=== PATIENT | female | born 1935 | race African-American/Black ===

== ENCOUNTER 2023-01-16 06:13 | Day surgery (SDC) | payer OTHER, BC ==
[2023-01-09 12:15] VITALS: BMI 29.8
[2023-01-16 06:49] VITALS: BP 132/65; PULSE 52; RESP 18; TEMP 97.7
[2023-01-16] MEDS ORDERED: ERYTHROMYCIN 0.5% OPHTHALMIC OINTMENT 3.5 GM TUBE ONE (07:10)
[2023-01-16] MEDS ORDERED: ceFAZolin SODIUM 1 GM VIAL ONE ×2 (07:10→07:22)
[2023-01-16] MEDS ORDERED: POVIDONE-IODINE 5% OPHTHALMIC PREP 30 ML SOLUTION ONE (07:11)
[2023-01-16] MEDS ORDERED: LIDOCAINE 1%-EPI 1:100,000 30 ML MDV IJ ONE (07:11)
[2023-01-16] MEDS ORDERED: BUPIVACAINE HCL/PF 0.5% (5MG/ML) 10 ML VIAL ONE (07:11)
[2023-01-16] MEDS ORDERED: TETRACAINE 0.5% OPHTH SOLN 2 ML BOTTLE ONE (07:11)
[2023-01-16] MEDS ORDERED: DEXAMETHASONE SOD PHOSPHATE 4 MG/1 ML VIAL ONE (07:22)
[2023-01-16] MEDS ORDERED: MIDAZOLAM HCL 2 MG/2 ML SINGLE DOSE VIAL ONE (07:22)
[2023-01-16] MEDS ORDERED: PROPOFOL 20 ML ONE (07:22)
[2023-01-16] MEDS ORDERED: ONDANSETRON 4 MG/2 ML VIAL ONE (07:22)
== END 2023-01-16 08:30 | disposition home or self-care (01) ==
LOC: FASU 06:13
PROVIDERS: ATTEND Ophthalmology
PROC: 08SR0ZZ Reposition Left Lower Eyelid, Open Approach (ICD-10-PCS; principal; 2023-01-16)
DX: Z53.8 Procedure and treatment not carried out for other reasons (principal); H02.105 Unspecified ectropion of left lower eyelid

== ENCOUNTER 2023-01-19 05:59 | Day surgery (SDC) | payer OTHER, BC ==
[2023-01-16 10:39] VITALS: BMI 29.8
[2023-01-19] MEDS ORDERED: ERYTHROMYCIN 0.5% OPHTHALMIC OINTMENT 3.5 GM TUBE ONE (06:40)
[2023-01-19] MEDS ORDERED: ceFAZolin SODIUM 1 GM VIAL ONE ×2 (06:40→07:18)
[2023-01-19] MEDS ORDERED: TETRACAINE 0.5% OPHTH SOLN 2 ML BOTTLE ONE (06:40)
[2023-01-19] MEDS ORDERED: POVIDONE-IODINE 5% OPHTHALMIC PREP 30 ML SOLUTION ONE (06:40)
[2023-01-19] MEDS ORDERED: BUPIVACAINE HCL/PF 0.5% (5MG/ML) 10 ML VIAL ONE (06:41)
[2023-01-19] MEDS ORDERED: LIDOCAINE 1%-EPI 1:100,000 30 ML MDV IJ ONE (06:41)
[2023-01-19] MEDS ORDERED: PROPOFOL 20 ML ONE ×2 (07:05→07:34)
[2023-01-19] MEDS ORDERED: MIDAZOLAM HCL 2 MG/2 ML SINGLE DOSE VIAL ONE ×2 (07:05→07:35)
[2023-01-19] MEDS ORDERED: GLYCOPYRROLATE 0.2 MG/1 ML VIAL ONE (07:50)
[2023-01-19] MEDS ORDERED: ONDANSETRON 4 MG/2 ML VIAL ONE (07:51)
[2023-01-19] MEDS ORDERED: DEXAMETHASONE SOD PHOSPHATE 4 MG/1 ML VIAL ONE (07:51)
[2023-01-19] MEDS ORDERED: ONDANSETRON 4 MG/2 ML VIAL IVPUSH PRN (09:32)
[2023-01-19] MEDS ORDERED: oxyCODONE HCL 5 MG TABLET PO PRN (09:32)
[2023-01-19] MEDS ORDERED: LACTATED RINGERS SOLUTION 1,000 ML IV SCH (09:45)
[2023-01-19 09:48] VITALS: RESP 18; TEMP 97
[2023-01-19 10:24] VITALS: BP 162/75; PULSE 64
== END 2023-01-19 10:27 | disposition home or self-care (01) ==
LOC: FASU 05:59
PROVIDERS: ATTEND Ophthalmology
PROC: 08BR0ZZ Excision of Left Lower Eyelid, Open Approach (ICD-10-PCS; 2023-01-19)
PROC: 08SP0ZZ Reposition Left Upper Eyelid, Open Approach (ICD-10-PCS; principal; 2023-01-19 07:24)
DX: H10.502 Unspecified blepharoconjunctivitis, left eye (principal); H57.12 Ocular pain, left eye; H02.89 Other specified disorders of eyelid
CPT/HCPCS: 88304-TC; 94760